=== PATIENT | female | born 1990 | race Caucasian/White ===

== ENCOUNTER 2019-09-23 11:50 | Emergency (ER) | payer OTHER ==
[~2019-09-23] VITALS: Ht 175.3 cm; Wt 106.6 kg
[2019-09-23 11:55] VITALS: BP 135/90
--- NOTE | 2019-09-23 12:02 | NUR ---
PT AMBULATED TO BED WITH FAMILY
[2019-09-23] MEDS ORDERED: NACL 0.9% 1,000 ML IV ONE (12:15)
--- NOTE | 2019-09-23 12:15 | NUR ---
29/F C/O FATIGUE, NAUSEA WITHOUT VOMITING X2-3 WEEKS. AT-HOME URINE 1 WEEK AGO WAS POSITIVE. DENIES FEVER, PAIN. STATES OCASSIONAL CHILLS, DIZZINESS. REPORTS DECREASED APPETITE. NAD. HX- NONE
--- NOTE | 2019-09-23 12:25 | NUR ---
HANDED BLOOD DRAW TO PHLEB
[2019-09-23 12:46] LABS: APPEARANCE,URINE SL CLOUDY (CLEAR); BILIRUBIN,URINE NEGATIVE (NEGATIVE); BLOOD, URINE NEGATIVE (NEGATIVE); COLOR,URINE YELLOW (YELLOW); LEUKOCYTE ESTERASE ,URINE TRACE (NEGATIVE); NITRITE, URINE NEGATIVE (NEGATIVE); PH,URINE 5.5 (5.0-9.0); UGLUCOSE NEGATIVE (NEGATIVE)
[2019-09-23 12:57] LABS: BASOPHILS % (AUTO) 0.4 % (0.0-2.0); EOSINOPHILS % (AUTO) 0.4 % (0.0-4.0); HEMATOCRIT 40.2 % (36-48); HEMOGLOBIN 13.3 g/dL (12.0-16.0); LYMPHOCYTES # (AUTO) 1.4 K/uL (2.5-16.5); LYMPHOCYTES % (AUTO) 18.9 % (20.5-51.1); MEAN CORPUSCULAR HEMOGLOBIN 30 pg (27-31); MEAN CORPUSCULAR HGB CONC 33 g/dL (33-37); MEAN CORPUSCULAR VOLUME 90.2 fL (80-94); MONOCYTES # (AUTO) 0.5 K/uL (0.8-1.0); MONOCYTES % (AUTO) 6.8 % (1.7-9.3); NEUTROPHILS # (AUTO) 5.5 K/uL (1.8-7.7); NEUTROPHILS % (AUTO) 73.5 % (42.2-75.2); PLATELET COUNT (AUTO) 227 K/uL (140-450); RED BLOOD CELL COUNT(AUTO) 4.46 MIL/uL (4.20-5.40); RED CELL DISTRIBUTION WIDTH 13.4 % (11.6-13.7); WHITE BLOOD COUNT (AUTO) 7.5 K/uL (4.8-10.8)
[2019-09-23 12:58] LABS: ANION GAP 15.9 (8-16); CARBON DIOXIDE 24.9 mmol/L (21-32); CREATININE 0.6 mg/dL (0.6-1.3); POTASSIUM 3.8 mmol/L (3.5-5.1)
[2019-09-23 12:58] LABS: RBC,URINE 0-5 /HPF (0-5)
--- NOTE | 2019-09-23 14:57 | NUR ---
C Addendum: 09/23/19 at 1458 by ROBERT SEE DOWN TIME CHARTING.
--- NOTE | 2019-09-23 15:48 | NUR ---
ADMINISTERED RHOGAM IM AT LT GLUTEUS NADIYA.
--- NOTE | 2019-09-23 16:20 | NUR ---
IV removed, catheter intact and site benign. Applied folded 4x4 gauze and tape to stop bleeding.
[2019-09-23 16:31] VITALS: BP 139/81
--- NOTE | 2019-09-26 13:48 | NUR ---
Late entry. Confirmed with RN that 1000ml 0.9 NS IV completed at 1330
== END 2019-09-23 16:31 | disposition home or self-care (01) ==
LOC: MED 11:50
DX: O23.41 Unspecified infection of urinary tract in pregnancy, first trimester (principal); O36.0910 Maternal care for other rhesus isoimmunization, first trimester, not applicable or unspecified; Z3A.08 8 weeks gestation of pregnancy; Z88.0 Allergy status to penicillin
CPT/HCPCS: 36415; 76801; 80048; 81001; 81025; 84702; 85025; 86886; 86900; 86901; 87086; 99284; J2790; J7030; Q0092